=== PATIENT | female | born 1945 | race Caucasian/White ===

== ENCOUNTER → 2017-07-09 | Outpatient (CLI) | payer MEDICARE, BC | LOC: MC.RAD 10:57 | DX: Z12.31 Encounter for screening mammogram for malignant neoplasm of breast (principal) ==

== ENCOUNTER → 2018-11-23 | Outpatient (CLI) | payer MEDICARE, BC | LOC: MC.RAD 11:05 | DX: Z12.31 Encounter for screening mammogram for malignant neoplasm of breast (principal) ==

== ENCOUNTER → 2019-11-30 | Outpatient (CLI) | payer MEDICARE, BC | LOC: MC.RAD 08:00 | DX: Z12.31 Encounter for screening mammogram for malignant neoplasm of breast (principal) ==

== ENCOUNTER → 2020-09-08 | Outpatient (CLI) | payer MEDICARE, BC ==
[~2020-09-08] MED LIST: AMITRIPTYLINE H10 M1 PO; B-121000 MCG PO; BENTYL 10MG10 MG/CAP PO; CARAFATE 1GM1 G PO; COLACE 100100 MG/CAP PO; COZAAR100 MG PO; CRESTOR40 MG PO; FERRO-TIME325 MG PO; FLONASEALLERGY NS; GLUCOPHAGE XR500 M1 PO; HCTZ 25MG TAB25 MG PO; K-DUR20 MEQ PO; LEXAPRO 10MG10 MG PO; LOPRESSOR 225 MG/TAB PO; MASON NATURAL2000 IU PO; PREMARIN VAG42.5 GM VG; PROTONIX 40MG T40 MG PO; ROXICODONE 55 MG/TAB PO; SANCTURA20 MG PO; TRIAMCINOLONE A15 G3 TP; TYLENOL 325MG325 MG PO; ULTRAM 50MG TAB50 MG PO
[2020-09-08 16:09] LABS: BASO % 0.4 % (0.0-2.0); EOS % 0.5 % (0-4.0); GRAN # 5.4 (1.4-6.5); GRAN % 65.2 % (42.2-75.2); HEMATOCRIT 39.1 % (37.0-47.0); HEMOGLOBIN 12.4 g/dl (12.5-16.0); LYMPH # 1.9 (1.2-3.4); LYMPH % 22.5 % (20.0-51.0); MEAN CELL VOLUME 86 fl (80.0-100.0); MEAN CORPUSCULAR HEMOGLOBIN 27 pg (27.0-31.0); MEAN CORPUSCULAR HGB CONC 32 g/dl (33.0-37.0); MEAN PLATELET VOLUME 10.5 fl (7.4-10.4); MONO # 0.9 (0.1-0.6); MONO % 11.2 % (1.7-9.3); PLATELET COUNT 379 K/mm3 (130-400); RED BLOOD COUNT 4.57 M/mm3 (4.10-5.30); REDCELL DISTRIBUTION WIDTH-CV 13.8 % (11.5-14.5)
[2020-09-08 16:15] LABS: ALBUMIN 4.1 gm/dL (3.5-5.0); BILIRUBIN,TOTAL 0.3 mg/dL (0.0-1.0); CALCIUM 10.1 mg/dL (8.4-10.2); CREATININE, serum 1.09 (0.52-1.25); TOTAL PROTEIN 6.9 gm/dL (6.4-8.2)
[2020-09-08 16:21] LABS: POTASSIUM 2.7 mmol/L (3.4-5.0)
== END ==
LOC: COL.LAB 15:35
PROVIDERS: Family Medicine
DX: R10.13 Epigastric pain (principal); R00.0 Tachycardia, unspecified

== ENCOUNTER 2021-01-29 10:30 | Outpatient (RCR) | payer MEDICARE, BC ==
[~2021-01-29 10:30] MED LIST changes: -TYLENOL 325MG325 MG PO; +TYLENOL 500MG500 MG PO
[2021-03-09] MEDS ORDERED: COREG 6.256.25 MG/TA PO (07:55)
[2021-03-09] MEDS ORDERED: NORVASC 5MG5 MG/TAB PO (07:57)
[2021-03-09] MEDS ORDERED: NATURE S BLEND PO (08:00)
[2021-03-09] MEDS ORDERED: COLACE 100100 MG/CAP PO (08:01)
[2021-03-09] MEDS ORDERED: ASPIRIN E.C. 8181 MG PO (08:02)
[2021-03-09] MEDS ORDERED: LIPITOR 80MG80 MG PO (08:03)
[2021-03-09] MEDS ORDERED: D-MANNOSE PO (08:19)
== END 2021-04-06 | disposition home or self-care (01) ==
LOC: WSST
DX: R47.01 Aphasia (principal); R53.1 Weakness; Z86.73 Personal history of transient ischemic attack (TIA), and cerebral infarction without residual deficits

== ENCOUNTER 2021-03-09 07:26 | Outpatient (CLI) | payer MEDICARE, BC ==
[~2021-03-09] VITALS: Ht 157.6 cm; Wt 66.4 kg
[2021-03-09] MEDS ORDERED: COREG 6.256.25 MG/TA PO (07:55)
[2021-03-09 07:56] LABS: HEMATOCRIT 42.1 % (37.0-47.0); HEMOGLOBIN 13.9 g/dl (12.5-16.0); MEAN CELL VOLUME 96 fl (80.0-100.0); MEAN CORPUSCULAR HEMOGLOBIN 32 pg (27.0-31.0); MEAN CORPUSCULAR HGB CONC 33 g/dl (33.0-37.0); MEAN PLATELET VOLUME 10.4 fl (7.4-10.4); PLATELET COUNT 213 K/mm3 (130-400); RED BLOOD COUNT 4.38 M/mm3 (4.10-5.30); REDCELL DISTRIBUTION WIDTH-CV 13.2 % (11.5-14.5)
[2021-03-09] MEDS ORDERED: NORVASC 5MG5 MG/TAB PO (07:57)
[2021-03-09] MEDS ORDERED: NATURE S BLEND PO (08:00)
[2021-03-09] MEDS ORDERED: COLACE 100100 MG/CAP PO (08:01)
[2021-03-09] MEDS ORDERED: ASPIRIN E.C. 8181 MG PO (08:02)
[2021-03-09] MEDS ORDERED: LIPITOR 80MG80 MG PO (08:03)
[2021-03-09 08:11] LABS: PROTHROMBIN TIME 11.4 SECONDS (9.7-12.8)
[2021-03-09 08:12] LABS: CALCIUM 9.2 mg/dL (8.4-10.2); CREATININE, serum 0.75 mg/dL (0.57-1.11); POTASSIUM 3.9 mmol/L (3.5-4.5)
[2021-03-09] MEDS ORDERED: D-MANNOSE PO (08:19)
[2021-03-09 09:01] VITALS: BP 117/74; PULSE 71; TEMP 97.6
[2021-03-09 09:51] VITALS: BP 132/57; PULSE 71
--- NOTE | 2021-03-09 09:59 | NUR ---
research laboratory technician staff in room to set pt up for loop recorder insertion. VS will continues to cycle every 15 mins. Pt is alert and free of complaints following DILLON.
[2021-03-09 10:00] VITALS: BP 131/63; PULSE 67
[2021-03-09 10:15] VITALS: BP 140/64; PULSE 63
[2021-03-09 10:30] VITALS: BP 162/74; PULSE 76
[2021-03-09 10:45] VITALS: BP 154/60; PULSE 70
--- NOTE | 2021-03-09 11:05 | NUR ---
DC instructions were reviewed with pt and , both express understanding. Dressing to loop recorder insert site remains clean, dry and intact. Pt has tolerated PO fluids without issue. Has been up to restroom with steady gait. INT DC'd with catheter intact. Pt assisted out to 's car by wheelchair with belongings.
== END 2021-03-09 11:05 | disposition home or self-care (01) ==
LOC: COL.RAD 07:26
PROVIDERS: Internal Medicine Adult Congenital Heart Disease
DX: G45.9 Transient cerebral ischemic attack, unspecified (principal)
CPT/HCPCS: C1764; J1885; J2405; J2704; J2765; J3010; J7030

== ENCOUNTER → 2021-03-23 | Outpatient (CLI) | payer MEDICARE, BC ==
[~2021-03-23] MED LIST changes: +ASPIRIN E.C. 8181 MG PO; +COREG 6.256.25 MG/TA PO; +D-MANNOSE PO; +LIPITOR 80MG80 MG PO; +NATURE S BLEND PO; +NORVASC 5MG5 MG/TAB PO
== END ==
LOC: MC.RAD 08:32
DX: Z12.31 Encounter for screening mammogram for malignant neoplasm of breast (principal)

== ENCOUNTER 2021-07-03 16:23 | Outpatient (RCR) | payer MEDICARE, BC | END 2021-07-05 | disposition home or self-care (01) | LOC: WSPT | DX: M51.36 Other intervertebral disc degeneration, lumbar region (principal) ==

== ENCOUNTER 2021-07-31 15:00 | Outpatient (RCR) | payer MEDICARE, BC | END 2021-08-04 | disposition home or self-care (01) | LOC: WSPT | DX: M51.36 Other intervertebral disc degeneration, lumbar region (principal) ==

== ENCOUNTER 2021-08-31 10:30 | Outpatient (RCR) | payer MEDICARE, BC | END 2021-09-04 | disposition home or self-care (01) | LOC: WSC | DX: M51.36 Other intervertebral disc degeneration, lumbar region (principal) ==

== ENCOUNTER 2021-09-26 21:05 | Emergency (ER) | payer MEDICARE, BC ==
[~2021-09-26] VITALS: Ht 157.5 cm; Wt 69.1 kg
[2021-09-26 21:26] VITALS: TEMP 97.6
[2021-09-26] MEDS ORDERED: PREDNISONE20 MG PO ×2 (22:15→22:30)
[2021-09-26 22:24] VITALS: BP 108/44; PULSE 72
== END 2021-09-26 22:24 | disposition home or self-care (01) ==
LOC: COL.ER 21:05
DX: M79.605 Pain in left leg (principal); M79.604 Pain in right leg

== ENCOUNTER 2021-10-03 15:45 | Outpatient (RCR) | payer MEDICARE, BC ==
[~2021-10-03 15:45] MED LIST changes: +PREDNISONE20 MG PO
== END 2021-10-04 | disposition still patient (30) ==
LOC: WSPT
DX: M51.36 Other intervertebral disc degeneration, lumbar region (principal)

== ENCOUNTER 2021-10-22 10:29 | Emergency (ER) | payer MEDICARE, BC ==
[2021-10-23] MEDS ORDERED: BENTYL 20MG20 MG/TAB PO (12:31)
[2021-10-23] MEDS ORDERED: NORCO 325 MG-51 TAB PO (12:31)
== END 2021-10-22 11:31 | disposition left against medical advice (07) ==
LOC: COL.ER 10:29
DX: R69 Illness, unspecified (principal)

== ENCOUNTER 2021-10-23 08:38 | Emergency (ER) | payer MEDICARE, BC ==
[~2021-10-23] VITALS: Ht 157.5 cm; Wt 71.4 kg
[2021-10-23 08:56] VITALS: TEMP 97.9
[2021-10-23 10:08] LABS: BASO # 0.1 K/mm3 (0.0-0.2); BASO % 0.8 % (0.0-2.0); EOS # 0.4 K/mm3 (0.0-0.7); EOS % 5.7 % (0.0-4.0); GRAN # 5.3 K/mm3 (1.4-6.5); HEMATOCRIT 41.7 % (37.0-47.0); HEMOGLOBIN 14.3 g/dl (12.5-16.0); LYMPH % 13.6 % (20.0-51.0); MEAN CELL VOLUME 95 fl (80.0-100.0); MEAN CORPUSCULAR HEMOGLOBIN 33 pg (27-31); MEAN CORPUSCULAR HGB CONC 34 g/dl (33.0-37.0); MEAN PLATELET VOLUME 9.7 fl (7.4-10.4); MONO # 0.6 K/mm3 (0.1-0.6); MONO % 8.4 % (1.7-9.3); PLATELET COUNT 217 K/mm3 (130-400); RED BLOOD COUNT 4.37 M/mm3 (4.10-5.30); REDCELL DISTRIBUTION WIDTH-CV 12.9 % (11.5-14.5)
[2021-10-23 10:35] LABS: ALBUMIN 3.4 gm/dL (3.4-4.8); BILIRUBIN,TOTAL 0.5 mg/dL (0.2-1.2); CALCIUM 9.9 mg/dL (8.4-10.2); CREATININE, serum 0.72 mg/dL (0.57-1.11); POTASSIUM 4.2 mmol/L (3.5-4.5); TOTAL PROTEIN 6.3 gm/dL (6.2-8.1)
[2021-10-23] MEDS ORDERED: BENTYL 20MG20 MG/TAB PO (12:31)
[2021-10-23] MEDS ORDERED: NORCO 325 MG-51 TAB PO (12:31)
[2021-10-23 13:08] VITALS: BP 134/58; PULSE 75
== END 2021-10-23 13:08 | disposition home or self-care (01) ==
LOC: COL.ER 08:38
PROVIDERS: Personal Emergency Response Attendant
DX: K57.30 Diverticulosis of large intestine without perforation or abscess without bleeding (principal); Z90.49 Acquired absence of other specified parts of digestive tract
CPT/HCPCS: J2270; J2405; J7030; Q9967

== ENCOUNTER 2021-10-31 11:15 | Outpatient (RCR) | payer MEDICARE, BC ==
[~2021-10-31 11:15] MED LIST changes: +BENTYL 20MG20 MG/TAB PO; +NORCO 325 MG-51 TAB PO
== END 2021-11-04 | disposition home or self-care (01) ==
LOC: WSC
DX: M51.36 Other intervertebral disc degeneration, lumbar region (principal)

== ENCOUNTER 2021-11-30 09:00 | Outpatient (RCR) | payer MEDICARE, BC | END 2021-12-05 | disposition home or self-care (01) | LOC: WSC | DX: M51.36 Other intervertebral disc degeneration, lumbar region (principal) ==

== ENCOUNTER 2022-03-31 17:40 | Inpatient (IN) | payer MEDICARE, BC ==
[~2022-03-31] VITALS: Ht 157.5 cm; Wt 69.0 kg
[2022-03-31 18:26] LABS: BASO % 0.2 % (0.0-2.0); EOS % 0.1 % (0.0-4.0); GRAN # 10.7 K/mm3 (1.4-6.5); GRAN % 85.6 % (42.2-75.2); LYMPH # 0.5 K/mm3 (1.2-3.4); LYMPH % 3.6 % (20.0-51.0); MEAN CELL VOLUME 95 fl (80.0-100.0); MEAN CORPUSCULAR HEMOGLOBIN 33 pg (27-31); MEAN CORPUSCULAR HGB CONC 35 g/dl (33.0-37.0); MEAN PLATELET VOLUME 10.4 fl (7.4-10.4); MONO # 1.2 K/mm3 (0.1-0.6); PLATELET COUNT 164 K/mm3 (130-400); RED BLOOD COUNT 3.89 M/mm3 (4.10-5.30); REDCELL DISTRIBUTION WIDTH-CV 11.8 % (11.5-14.5)
[2022-03-31 18:38] LABS: ALBUMIN 3.2 gm/dL (3.4-4.8); BILIRUBIN,TOTAL 1.2 mg/dL (0.2-1.2); C-REACTIVE PROTEIN 13.39 mg/dL (0.00-0.50); CALCIUM 8.7 mg/dL (8.4-10.2); CREATININE, serum 0.81 mg/dL (0.57-1.11); POTASSIUM 3.6 mmol/L (3.5-4.5); TOTAL PROTEIN 6.3 gm/dL (6.2-8.1)
[2022-03-31 18:54] LABS: COLLECTION METHOD CATHETER
[2022-03-31 19:14] LABS: MUCOUS Present (NOT PRESENT); PH 5.5 (5-8); SQUAMOUS EPITHELIAL None Seen /hpf (0-10); URINE APPEARANCE Turbid (CLEAR/HAZY); URINE BACTERIA Rare /hpf (NONE SEEN); URINE COLOR Yellow (YELLOW); URINE GLUCOSE 1+ (NEGATIVE); URINE KETONE 1+ (NEGATIVE); URINE PROTEIN(semi-quant) 2+ (NEGATIVE); URINE RBC 20-50 /hpf (0-2)
[2022-03-31 19:15] LABS: URINE BLOOD 2+ (NEGATIVE); URINE NITRATE Negative (NEGATIVE)
[2022-03-31] MEDS ORDERED: CRESTOR 10MG10 MG PO (22:47)
[2022-03-31 22:58] VITALS: BP 125/57; PULSE 87; TEMP 98.3
--- NOTE | 2022-03-31 23:00 | NUR ---
Admitted from ER to medical floor, DX UTI, did get Rocephin IV and IV fluids in ER, VSS, o2 sats 99% RA, Up to bathroom with standby assist- steady on feet, alert/oriented x4. Afebrile.
[2022-03-31] MEDS ORDERED: GLUCOPHAGE XR500 M1 PO (23:31)
[2022-04-01 03:56] VITALS: BP 125/37; PULSE 102; TEMP 100.2
--- NOTE | 2022-04-01 06:08 | NUR ---
Was given Zofran x1 for nausea/emesis last night- was effective, temp 100.2,,tylenol given . o2 at 2L/nc with sats at 95% during the night- was put on o2 during the night due to the fact that pt uses CPAP at night at home-- to bring in today.
[2022-04-01 06:58] LABS: CALCIUM 8.6 mg/dL (8.4-10.2); CREATININE, serum 0.72 mg/dL (0.57-1.11)
[2022-04-01 06:59] LABS: HEMOGLOBIN 11.2 g/dl (12.5-16.0); MEAN CELL VOLUME 95 fl (80.0-100.0); MEAN CORPUSCULAR HEMOGLOBIN 33 pg (27-31); MEAN CORPUSCULAR HGB CONC 35 g/dl (33.0-37.0); MEAN PLATELET VOLUME 11.1 fl (7.4-10.4); PLATELET COUNT 146 K/mm3 (130-400); RED BLOOD COUNT 3.37 M/mm3 (4.10-5.30); REDCELL DISTRIBUTION WIDTH-CV 11.8 % (11.5-14.5)
[2022-04-01 07:02] LABS: HEMATOCRIT 32.1 % (37.0-47.0)
[2022-04-01 07:55] VITALS: BP 116/44; PULSE 84; TEMP 97.8
--- NOTE | 2022-04-01 07:55 | NUR ---
Patient concerned about blood pressure. Discussed with Dr Herrera due to having Coreg due at this time. States to go ahead and give Coreg.
[2022-04-01 08:42] LABS: BAND 10 % (0-10); LYMPHOCYTE 9 % (20.0-51.0); NEUTROPHILS 75 % (42.0-75.2); PLATELET ESTIMATE NORMAL (NORMAL)
--- NOTE | 2022-04-01 11:51 | NUR ---
[place]ail[place]: [facility] Situation: parimutuel ticket cashier stopped by room on rounds Background: Pt was resting and content Assessment: Pt asked for prayer, parimutuel ticket cashier prayed with pt, pt appreciated the visit Recommendation: parimutuel ticket cashier will follow up as needed
[2022-04-01 12:30] VITALS: BP 116/39; PULSE 76; TEMP 97.9
--- NOTE | 2022-04-01 12:32 | NUR ---
SW met with pt to complete intake. Pt reports she lives at home with her , Obinna @ [phone]. Pt reports independent on all ADLs and does have a CPAP, Glucometer. PCP Dr. Anaya and gets medications from [facility]. Pt reports a DPOA-HC, but not in chart. No other needs at this time. DC: Home.
[2022-04-01 16:25] VITALS: BP 110/43; PULSE 81; TEMP 98.2
--- NOTE | 2022-04-01 19:08 | NUR ---
Patient had an uneventful day. States since she had the potassium she feels much better-no headache/nausea. NC Q4H WNL. Denied pain/nausea/shortness of breath. VS remained stable. Denies current needs. Call light in reach. Will monitor.
[2022-04-01 21:52] VITALS: BP 118/57; PULSE 82; TEMP 99.8
[2022-04-02] VITALS: BP 111/55; PULSE 79; TEMP 97.9
[2022-04-02 04:00] VITALS: BP 123/50; PULSE 78; TEMP 98.5
[2022-04-02 08:00] VITALS: BP 133/68; PULSE 81; TEMP 98.3
--- NOTE | 2022-04-02 09:11 | NUR ---
Initial visit; Patient thanked Supervisor [employer] for looking in on her. Supervisor [employer] kept her visit short as Marielena was just served her breakfast. Patient was very sweet and welcoming. Supervisor [employer] will look in on her again.
[2022-04-02 11:30] VITALS: BP 121/70; PULSE 81; TEMP 98.4
[2022-04-02 15:24] VITALS: BP 116/49; PULSE 82; TEMP 98.6
[2022-04-02 20:31] VITALS: BP 130/44; PULSE 76; TEMP 98.2
[2022-04-03 00:41] VITALS: BP 125/49; PULSE 76; TEMP 98.3
[2022-04-03 05:00] VITALS: BP 121/65; PULSE 73; TEMP 98.7
[2022-04-03 06:48] LABS: BASO % 0.4 % (0.0-2.0); EOS # 0.2 K/mm3 (0.0-0.7); EOS % 3.4 % (0.0-4.0); GRAN # 3.2 K/mm3 (1.4-6.5); HEMOGLOBIN 11.6 g/dl (12.5-16.0); LYMPH # 0.9 K/mm3 (1.2-3.4); LYMPH % 18.5 % (20.0-51.0); MEAN CELL VOLUME 97 fl (80.0-100.0); MEAN CORPUSCULAR HEMOGLOBIN 33 pg (27-31); MEAN CORPUSCULAR HGB CONC 34 g/dl (33.0-37.0); MEAN PLATELET VOLUME 11.2 fl (7.4-10.4); MONO # 0.7 K/mm3 (0.1-0.6); MONO % 13.1 % (1.7-9.3); PLATELET COUNT 148 K/mm3 (130-400); RED BLOOD COUNT 3.56 M/mm3 (4.10-5.30); REDCELL DISTRIBUTION WIDTH-CV 11.9 % (11.5-14.5)
[2022-04-03 06:49] LABS: HEMATOCRIT 34.6 % (37.0-47.0)
[2022-04-03 07:15] LABS: ALBUMIN 2.5 gm/dL (3.4-4.8); CALCIUM 8.2 mg/dL (8.4-10.2); CREATININE, serum 0.74 mg/dL (0.57-1.11); PHOSPHOROUS 3.7 mg/dL (2.3-4.7); POTASSIUM 4.1 mmol/L (3.5-4.5)
[2022-04-03 07:23] VITALS: BP 120/69; PULSE 71; TEMP 98.3
[2022-04-03] MEDS ORDERED: CEFTIN500 MG PO (10:08)
[2022-04-03 11:08] VITALS: BP 106/68; PULSE 72; TEMP 98.7
--- NOTE | 2022-04-03 11:35 | NUR ---
SHIFT ASSESSMENT COMPLETED AND MORNING MEDICATIONS ADMINSITERED PER ORDER. PATIENT IS ALERT AND ORIENTED X4. DENIES PAIN. LUNGS CTA. NEURO CHECKS WNL. PLAN TO DISCHARGE TODAY. DENIES ANY NEEDS OR CONCERNS AT THIS TIME. CALL LIGHT IN PLACE.
--- NOTE | 2022-04-03 14:42 | NUR ---
PATIENT DISCHARGED PER ORDER. IV TO LEFT ARM REMOVED WITH CATHETER INTACT, NO BLEEDING NOTED, GAUZE DRESSING APPLIED. DISCHARGE TEACHING PROVIDED ON CEFTIN, DIAGNOSIS, FOLLOW UP APPOINTMENTS, AND HOME MEDS. PATIENT AND FAMILY AT BEDSIDE DENY ANY QUESTIONS OR CONCERNS.
== END 2022-04-03 15:00 | disposition home or self-care (01) | DRG 871 ==
LOC: COL.ER 17:40 → MEDICAL 19:37
PROVIDERS: Emergency Medicine; Physician Assistant; ADMIT Internal Medicine
DX: A41.9 Sepsis, unspecified organism (principal); G93.41 Metabolic encephalopathy; N39.0 Urinary tract infection, site not specified; E87.20 Acidosis, unspecified; F32.A Depression, unspecified; K21.9 Gastro-esophageal reflux disease without esophagitis; G47.33 Obstructive sleep apnea (adult) (pediatric); E78.5 Hyperlipidemia, unspecified; I10 Essential (primary) hypertension; F10.90 Alcohol use, unspecified, uncomplicated; Z20.822 Contact with and (suspected) exposure to COVID-19; K75.4 Autoimmune hepatitis; E11.65 Type 2 diabetes mellitus with hyperglycemia; B96.20 Unspecified Escherichia coli [E. coli] as the cause of diseases classified elsewhere; B96.5 Pseudomonas (aeruginosa) (mallei) (pseudomallei) as the cause of diseases classified elsewhere; K76.0 Fatty (change of) liver, not elsewhere classified; Z90.710 Acquired absence of both cervix and uterus; Z86.73 Personal history of transient ischemic attack (TIA), and cerebral infarction without residual deficits; Z90.49 Acquired absence of other specified parts of digestive tract; Z79.82 Long term (current) use of aspirin; Z88.8 Allergy status to other drugs, medicaments and biological substances; Z91.048 Other nonmedicinal substance allergy status; Z23 Encounter for immunization
CPT/HCPCS: J0696; J1650; J1815; J2405; J2543; J7030; J7120

== ENCOUNTER → 2022-05-21 | Outpatient (CLI) | payer MEDICARE, BC ==
[~2022-05-21] MED LIST changes: +CEFTIN500 MG PO; +CRESTOR 10MG10 MG PO
== END ==
LOC: MC.RAD 09:38
DX: Z12.31 Encounter for screening mammogram for malignant neoplasm of breast (principal)

== ENCOUNTER → 2022-07-03 | Outpatient (CLI) | payer MEDICARE, BC | LOC: MHCPAIN 13:36 | DX: M53.3 Sacrococcygeal disorders, not elsewhere classified (principal); M54.50 Low back pain, unspecified; M41.86 Other forms of scoliosis, lumbar region; Z98.1 Arthrodesis status | CPT/HCPCS: G0463 ==

== ENCOUNTER → 2022-07-22 | Outpatient (CLI) | payer MEDICARE, BC | LOC: MHCPAIN 12:38 | DX: M47.898 Other spondylosis, sacral and sacrococcygeal region (principal); M54.50 Low back pain, unspecified; M53.3 Sacrococcygeal disorders, not elsewhere classified | CPT/HCPCS: J3301; Q9967 ==

== ENCOUNTER 2022-07-31 14:51 | Outpatient (RCR) | payer MEDICARE, BC | END 2022-08-04 | disposition home or self-care (01) | LOC: WSPT | DX: M54.50 Low back pain, unspecified (principal); G89.29 Other chronic pain ==

== ENCOUNTER 2022-12-06 10:02 | Outpatient (RCR) | payer MEDICARE, BC | END 2022-12-06 12:00 | disposition home or self-care (01) | LOC: WSPT 10:02 | DX: M54.50 Low back pain, unspecified (principal) ==

== ENCOUNTER → 2022-12-18 | Outpatient (CLI) | payer MEDICARE, BC | LOC: COL.RAD 15:09 | DX: M19.011 Primary osteoarthritis, right shoulder (principal); M19.012 Primary osteoarthritis, left shoulder; M19.032 Primary osteoarthritis, left wrist ==

== ENCOUNTER → 2022-12-18 | Outpatient (CLI) | payer MEDICARE, BC | LOC: MHCPAIN 14:05 | DX: M54.50 Low back pain, unspecified (principal); Z98.1 Arthrodesis status; M41.86 Other forms of scoliosis, lumbar region; M53.3 Sacrococcygeal disorders, not elsewhere classified; M13.842 Other specified arthritis, left hand; M25.512 Pain in left shoulder; M25.511 Pain in right shoulder | CPT/HCPCS: G0463 ==

== ENCOUNTER → 2023-04-17 | Outpatient (CLI) | payer MEDICARE, BC | LOC: DIA.ED 04-09 08:43 | DX: E11.59 Type 2 diabetes mellitus with other circulatory complications (principal); Z79.84 Long term (current) use of oral hypoglycemic drugs; E78.5 Hyperlipidemia, unspecified; I10 Essential (primary) hypertension | CPT/HCPCS: G0108 ==

== ENCOUNTER → 2023-07-14 | Outpatient (CLI) | payer MEDICARE, BC ==
[~2023-07-14] MED LIST changes: +IMURAN 50MG TAB50 MG PO; +LIDODERM 5% PATC1 EA TP; +LYRICA 150MG C150 MG PO; +OZEMPIC0.25 MG/02 SQ; +TAMIFLU30 MG PO
== END ==
LOC: MHCPAIN 11:22
DX: M54.50 Low back pain, unspecified (principal); M41.80 Other forms of scoliosis, site unspecified; Z98.1 Arthrodesis status
CPT/HCPCS: G0463

== ENCOUNTER → 2023-07-31 | Outpatient (CLI) | payer MEDICARE, BC ==
[~2023-07-31] MED LIST changes: +Iohexol 300 - 10 ML VIAL ONE; +Lidocaine PF 2% (20 MG/ML) 2 ML VIAL ONE
== END ==
LOC: MHCPAIN 09:00
DX: M54.16 Radiculopathy, lumbar region (principal); Z98.1 Arthrodesis status
CPT/HCPCS: J1100; Q9967

== ENCOUNTER → 2023-12-11 | Outpatient (CLI) | payer MEDICARE, BC | LOC: MHCPAIN 09:02 | DX: M54.16 Radiculopathy, lumbar region (principal); M96.1 Postlaminectomy syndrome, not elsewhere classified | CPT/HCPCS: J1100; Q9967 ==